=== PATIENT | male | born 1985 ===

== ENCOUNTER 2017-09-19 05:16 | Emergency (ER) | payer OTHER, BC ==
[2017-09-19 05:41] VITALS: TEMP 98.1; O2SAT 97
--- NOTE | 2017-09-19 06:28 | ED PDOC ---
HPI: General Adult Time Seen by Provider: 09/19/17 05:39 Chief Complaint (Nursing): Body Fluid Exposure Chief Complaint (Provider): Body Fluid Exposure History Per: Patient History/Exam Limitations: no limitations Onset/Duration Of Symptoms: Hrs (x 1) Current Symptoms Are (Timing): Still Present Additional Complaint(s): 32 year old male presents to the ED for evaluation of blood exposure. Patient reports he touched a door knob with his left hand that appeared to have dried blood on it. 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 Denies any other medical complaints. PMD: none provided Past Medical History Reviewed: Historical Data, Nursing Documentation, Vital Signs Vital Signs: Last Vital Signs Temp 98.1 F 09/19/17 05:36 Pulse 68 09/19/17 08:42 Resp 16 09/19/17 08:42 BP 119/64 09/19/17 08:42 Pulse Ox 97 09/20/17 11:44 - Medical History PMH: No Chronic Diseases - Family History Family History: States: Unknown Family Hx - Allergies Allergies/Adverse Reactions: Allergies Allergy/AdvReac Type Severity Reaction Status Date / Time No Known Allergies Allergy Verified 09/19/17 05:41 Review of Systems ROS Statement: Except As Marked, All Systems Reviewed And Found Negative Musculoskeletal: Positive for: Hand Pain (small laceration to left hand) Physical Exam - Reviewed Nursing Documentation Reviewed: Yes Vital Signs Reviewed: Yes - Physical Exam Appears: Positive for: No Acute Distress Head Exam: Positive for: ATRAUMATIC Extremity: Positive for: Normal ROM (1.5 cm superifical, healing laceration to left palm; skin interrupted; no active bleeding), Other (1.5 cm superficial, healing laceration to left hand). Negative for: Tenderness, Deformity, Swelling Neurologic/Psych: Positive for: Alert, Oriented. Negative for: Motor/Sensory Deficits - ECG O2 Sat by Pulse Oximetry: 97 (RA) Pulse Ox Interpretation: Normal Medical Decision Making Medical Decision Making: Time; 06:01 Impression: exposure to blood and laceration on left hand currently healing Initial Plan: --Hepatitis Panel --HIV rapid Appears to be low risk since blood was dry and laceration is superficial and healing since he sustained it 4 days ago Patient will be checked for HIV and hepatitis as well as the individual whose blood he was exposed to. Scribe Attestation: Documented by Shanelle Kirby, acting as a scribe for Grecia Haynes MD Provider Scribe Attestation: All medical record entries made by the Scribe were at my direction and personally dictated by me. I have reviewed the chart and agree that the record accurately reflects my personal performance of the history, physical exam, medical decision making, and the department course for this patient. I have also personally directed, reviewed, and agree with the discharge instructions and disposition. Disposition - Clinical Impression Clinical Impression: Exposure to blood, Abrasion - Patient ED Disposition Is Patient to be Admitted: Transfer of Care - Disposition Referrals: [facility] [Outside] - 09/21/17 Disposition: Transfer of Care Disposition Time: 07:00 Condition: STABLE Additional Instructions: You have chosen not to get prophylactic treatments for HIV. Follow up with your doctor without fail. Hepatitis labs are pending. Rapid HIV is neg. Instructions: Skin Abrasions, Blood or Body Fluid Exposure Patient Signed Over To: Mike Farias
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
[2017-09-19 08:53] VITALS: BP 119/64; PULSE 68; RESP 16
[2017-09-19 17:28] LABS: HEPATITIS B SURFACE AG Negative (NEGATIVE)
[2017-09-19 17:36] LABS: HEPATITIS A IGM NEGATIVE (NEGATIVE); HEPATITIS B CORE AB NEGATIVE (NEGATIVE)
[2017-09-19 17:45] LABS: HEPATITIS C ANTIBODY NEGATIVE (NEGATIVE)
== END 2017-09-19 08:42 | disposition home or self-care (01) ==
LOC: H.ER 05:16
DX: Z77.21 Contact with and (suspected) exposure to potentially hazardous body fluids (principal)

== ENCOUNTER 2018-08-11 08:11 | Emergency (ER) | payer OTHER, BC ==
[2018-08-11 08:14] VITALS: BP 120/98; PULSE 105; RESP 18; TEMP 98.2; O2SAT 96; BMI 33.7
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
--- NOTE | 2018-08-11 17:18 | RAD ---
PROCEDURE: Bilateral hand radiographs. HISTORY: Injury COMPARISON: None. TECHNIQUE: 6 views obtained. FINDINGS: BONES: Right Hand: No evidence of acute displaced fracture nor dislocation. There appear to be small cystic changes within the navicular and lunate bone. No cortical destructive changes. Left Hand: There are 2 fixation screws traversing the navicular bone. There appears to be a deformity of the bones of the wrist; the lunate bone is not seen with certainty questionable old fracture deformity of the triquetrum bone JOINTS: Right Hand: Normal. Left Hand: Degenerative osteoarthritis involving the carpal bones. SOFT TISSUES: Right hand: There may be some mild right-sided dorsal soft tissue swelling Left hand:. No evidence of soft tissue abnormality OTHER FINDINGS: None. IMPRESSION: Left hand: No evidence of acute displaced fracture nor dislocation. There are 2 fixation screws traversing through the navicular bone. The the left lunate is not identified with certainty. Questionable fracture of the triquetrum bone. Right hand: No evidence of acute displaced fracture nor dislocation. Cystic changes are present within the navicular and lunate bone appear questionable dorsal soft tissue swelling.
--- NOTE | 2018-08-13 13:16 | RAD ---
Date of service: 08/11/2018 PROCEDURE: Left Wrist Radiographs. HISTORY: injury COMPARISON: 08/11/2018 TECHNIQUE: 4 views obtained. FINDINGS: BONES: Two orthopedic screws traverse the scaphoid and lunate. No evidence of orthopedic hardware failure. JOINTS: Postoperative degenerative changes SOFT TISSUES: Normal. OTHER FINDINGS: None. IMPRESSION: No acute findings related to/ accounting for the clinical presentation..
== END 2018-08-11 09:55 | disposition home or self-care (01) ==
LOC: H.ER 08:11
DX: S63.502A Unspecified sprain of left wrist, initial encounter (principal); Y04.0XXA Assault by unarmed brawl or fight, initial encounter; Y99.0 Civilian activity done for income or pay